=== PATIENT | male | born 1975 | race Hispanic/Latino ===

== ENCOUNTER 2017-05-19 10:08 | Day surgery (SDC) | payer OTHER ==
[2017-05-18 15:54] LABS: BASOPHILS % (AUTO) 0.4 % (0.0-5.0); EOSINOPHILS % (AUTO) 2.1 % (0.0-8.0); HEMATOCRIT 44.9 % (42-54); MEAN CORPUSCULAR HEMOGLOBIN 32.9 pg (27.0-33.0); MEAN CORPUSCULAR HGB CONC 35.2 g/dL (32.0-36.0); MEAN CORPUSCULAR VOLUME 93.3 fL (79-99); MONOCYTES % (AUTO) 8.7 % (3.0-13.0); NEUTROPHILS % (AUTO) 61.8 % (40.0-77.0); PLATELET COUNT (AUTO) 210 K/uL (130-400); RED BLOOD CELL COUNT(AUTO) 4.81 MIL/uL (4.50-6.20); RED CELL DISTRIBUTION WIDTH 12.9 % (11.0-15.5); WHITE BLOOD COUNT (AUTO) 11.3 K/uL (4.8-10.8)
[2017-05-18 16:06] LABS: CREATININE 0.8 mg/dL (0.5-1.5); POTASSIUM 3.5 mmol/L (3.5-5.1)
[2017-05-18 16:13] VITALS: BP 123/66
[~2017-05-19] VITALS: Ht 177.8 cm; Wt 102.5 kg
[2017-05-19] VITALS (13 sets, daily range): BP systolic 116–142; BP diastolic 58–81
[~2017-05-19 10:08] MED LIST: ADDE10 PO; ATEN1TAB4 PO; CEFAZOLIN 3GM /D5W 100ML 100 ML IV SCH; CLON1TAB23 PO; HYDR-4068 PO; QUET25TA PO; SERTRALINE PO; TRAZ-144 PO
[2017-05-19] MEDS ORDERED: PROPOFOL 10 MG/ML 20ML VIAL IV ONE (10:31)
[2017-05-19] MEDS ORDERED: SUCCINYLCHOLINE 200MG/10ML SYR ONE (10:31)
[2017-05-19] MEDS ORDERED: NEOSTIGMINE METHYLSULFATE 1MG/ML IV ONE (10:31)
[2017-05-19] MEDS ORDERED: GLYCOPYRROLATE 0.2 MG/ML 5 ML VIAL ONE (10:31)
[2017-05-19] MEDS ORDERED: FENTANYL CITRATE PF 50 MCG/1 ML 2ML VIAL ONE ×4 (10:31→13:33)
[2017-05-19] MEDS ORDERED: MIDAZOLAM HCL 1 MG/ML 2ML VIAL ONE (10:31)
[2017-05-19] MEDS ORDERED: ONDANSETRON HCL 4 MG/2 ML VIAL ONE (10:31)
[2017-05-19] MEDS ORDERED: DEXAMETHASONE SOD PHOSPHATE 10MG/ML 1ML VIAL ONE (10:31)
[2017-05-19] MEDS ORDERED: WATER FOR INJECTION,STERILE 20 ML VIAL ONE (10:34)
[2017-05-19] MEDS ORDERED: EPINEPHRINE 1 MG/ML 30ML VIAL IJ ONE (10:35)
[2017-05-19] MEDS ORDERED: LACTATED RINGERS 1000ML 1,000 ML IV ONE (10:35)
[2017-05-19] MEDS ORDERED: CEFAZOLIN SODIUM 1 GM VIAL ONE (10:35)
[2017-05-19] MEDS ORDERED: ROPIVACAINE 0.5% 5MG/ML 30ML IJ ONE (10:36)
== END 2017-05-19 15:15 | disposition home or self-care (01) ==
LOC: DAH 10:08
PROVIDERS: ATTEND Orthopaedic Surgery
DX: M75.42 Impingement syndrome of left shoulder (principal); G89.29 Other chronic pain; F17.200 Nicotine dependence, unspecified, uncomplicated; F43.10 Post-traumatic stress disorder, unspecified; F90.9 Attention-deficit hyperactivity disorder, unspecified type; I10 Essential (primary) hypertension; Z98.890 Other specified postprocedural states; Z82.49 Family history of ischemic heart disease and other diseases of the circulatory system
CPT/HCPCS: 29824; 36415; 80048; 85025; A4565; A4649 ×3; A4930; A6204; J0171; J0330; J0690; J1100; J2250; J2405; J2704; J2710; J2795; J3010 ×4; J3490; J7120 ×2

== ENCOUNTER 2022-12-30 06:44 | Day surgery (SDC) | payer OTHER ==
[2022-12-28 13:51] LABS: BASOPHILS # (AUTO) 0.06 K/uL (0.00-0.20); BASOPHILS % (AUTO) 0.6 % (0.0-5.0); EOSINOPHILS # (AUTO) 0.19 K/uL (0.00-0.70); EOSINOPHILS % (AUTO) 1.9 % (0.0-8.0); HEMATOCRIT 47.3 % (42-54); IMMATURE GRANULOCYTE ABSOLUTE 0.06 K/uL (0-1); LYMPHOCYTES % (AUTO) 30.5 % (21.0-51.0); MEAN CORPUSCULAR HEMOGLOBIN 32.2 pg (27.0-33.0); MEAN CORPUSCULAR HGB CONC 35.3 g/dL (32.0-36.0); MEAN CORPUSCULAR VOLUME 91.3 fL (79-99); MONOCYTES # (AUTO) 0.9 K/uL (0.1-1.0); MONOCYTES % (AUTO) 8.9 % (3.0-13.0); NEUTROPHILS # (AUTO) 5.7 K/uL (1.8-7.7); NEUTROPHILS % (AUTO) 57.5 % (40.0-77.0); PLATELET COUNT (AUTO) 240 K/uL (130-400); RED BLOOD CELL COUNT(AUTO) 5.18 MIL/uL (4.50-6.20); RED CELL DISTRIBUTION WIDTH 12.5 % (11.0-15.5)
[2022-12-28 13:59] LABS: ALBUMIN 3.9 g/dL (3.5-5.0); CARBON DIOXIDE 32 mmol/L (21-32); CHLORIDE 100 mmol/L (101-111); CREATININE 1.1 mg/dL (0.5-1.5); GLOMERULAR FILTR. RATE CALC 84 mL/min (>90); GLUCOSE,RANDOM 123 mg/dL (70-105); POTASSIUM 3.1 mmol/L (3.5-5.1); SODIUM SERUM 139 mmol/L (136-145); UREA NITROGEN, BLOOD 21 mg/dL (7-18)
[2022-12-28 14:15] LABS: CRP QUANTITATIVE < 2.00 mg/L (0.00-9.0)
[2022-12-28 14:47] VITALS: BP 129/82; PULSE 72; RESP 18
[2022-12-30] VITALS (17 sets, daily range): BP systolic 120–138; BP diastolic 74–87; PULSE 59–66; RESP 15–20
[~2022-12-30] VITALS: Ht 180.3 cm; Wt 118.0 kg
[~2022-12-30 06:44] MED LIST changes: -ADDE10 PO; +ATEN100T PO; -ATEN1TAB4 PO; +ATOR40TA69 PO; -CEFAZOLIN 3GM /D5W 100ML 100 ML IV SCH; -CLON1TAB23 PO; +OMEP40CA21 PO; +PREG100C PO; -QUET25TA PO; +QUET400T PO; +SERT-440 PO; -SERTRALINE PO; -TRAZ-144 PO; +TRAZ-187 PO
[2022-12-30] MEDS ORDERED: LACTATED RINGERS 1000ML 1,000 ML IV ONE (07:08)
[2022-12-30] MEDS ORDERED: FAMOTIDINE 20MG VIAL IV ONE (07:31)
[2022-12-30] MEDS ORDERED: EPINEPHRINE 1 MG/ML 30ML VIAL IJ ONE (07:33)
[2022-12-30] MEDS ORDERED: LIDOCAINE PF 100MG/5ML (2%) SYRINGE 5ML ONE (07:34)
[2022-12-30] MEDS ORDERED: SUCCINYLCHOLINE 200MG/10ML SYR ONE (07:35)
[2022-12-30] MEDS ORDERED: PHENYLEPHRINE HCL 10 MG/ML 1ML VIAL IV ONE (07:35)
[2022-12-30] MEDS ORDERED: PROPOFOL 10 MG/ML 20ML VIAL IV ONE (07:35)
[2022-12-30] MEDS ORDERED: FENTANYL CITRATE PF 50 MCG/1 ML 2ML VIAL ONE ×2 (07:35→10:10)
[2022-12-30] MEDS ORDERED: GLYCOPYRROLATE 1 MG/5 ML SYRINGE ONE (07:35)
[2022-12-30] MEDS ORDERED: MIDAZOLAM HCL 1 MG/ML 2ML VIAL ONE ×2 (07:35→07:59)
[2022-12-30] MEDS ORDERED: CEFAZOLIN SODIUM 1 GM VIAL ONE (07:38)
[2022-12-30] MEDS ORDERED: CEFAZOLIN SODIUM 2 GM VIAL ONE (07:38)
[2022-12-30] MEDS ORDERED: ROPIVACAINE 0.5% 5MG/ML 30ML IJ ONE (07:44)
[2022-12-30] MEDS ORDERED: ROCURONIUM 10MG/1ML SYR 10 MG/ML ML ONE ×2 (08:13→09:37)
[2022-12-30] MEDS ORDERED: CEFAZOLIN SODIUM 3 GM VIAL IVPB ONE (08:40)
[2022-12-30] MEDS ORDERED: ONDANSETRON 4MG INJ ONE (10:12)
[2022-12-30] MEDS ORDERED: DEXMEDETOMIDINE HCL 200 MCG/2 ML VIAL IV ONE (10:15)
[2022-12-30] MEDS ORDERED: NEOSTIGMINE 5MG/5ML SYR IV ONE (10:44)
== END 2022-12-30 12:40 | disposition home or self-care (01) ==
LOC: DAH 06:44
PROVIDERS: ATTEND Student in an Organized Health Care Education/Training Program
DX: M75.21 Bicipital tendinitis, right shoulder (principal); Z20.822 Contact with and (suspected) exposure to COVID-19; M75.41 Impingement syndrome of right shoulder; M24.111 Other articular cartilage disorders, right shoulder; M19.011 Primary osteoarthritis, right shoulder; M94.211 Chondromalacia, right shoulder; M77.8 Other enthesopathies, not elsewhere classified; M65.811 Other synovitis and tenosynovitis, right shoulder; M25.811 Other specified joint disorders, right shoulder; M75.111 Incomplete rotator cuff tear or rupture of right shoulder, not specified as traumatic; I10 Essential (primary) hypertension; E78.5 Hyperlipidemia, unspecified; F17.210 Nicotine dependence, cigarettes, uncomplicated; K21.9 Gastro-esophageal reflux disease without esophagitis; G47.00 Insomnia, unspecified; Z98.890 Other specified postprocedural states; Z82.49 Family history of ischemic heart disease and other diseases of the circulatory system
CPT/HCPCS: 82040; 80048; 85025; 84134; 86140; 87426; 36415; 29824; 29826; 64415; A4663; J7120 ×2; A4565; J0690 ×3; J3490 ×3; J3010 ×2; J0330; J2710; J0171; J2001; J2250 ×2; J2704; J2405; J2795; J2371; A6223; A4215; A4223; A4222; A4221